=== PATIENT | female | born 1985 | race Caucasian/White ===

== ENCOUNTER 2016-08-13 02:35 | Inpatient (IN) | payer BC, OTHER ==
[2016-08-13] MEDS ORDERED: DINOPROSTONE 10 MG VAGINAL SUPPOSITORY VG ONE (03:50)
[2016-08-13 04:47] VITALS: BMI 30.9
[2016-08-13 05:28] LABS: BASOPHIL 0.5 % (0-2.0); EOSINOPHIL 3.1 % (0-4.5); MCH 25.4 pg (25.7-33.7); MCHC 32.8 g/dl (32.0-36.0); MEAN CELL VOLUME 77.2 fl (80-96); MEAN PLT VOLUME 9.9 fl (7.5-11.1); NEUTROPHILS 73.4 % (42.8-82.8); PLATELET COUNT 156 K/MM3 (134-434); RDW 15.7 % (11.6-15.6); WHITE BLOOD COUNT 11.3 K/mm3 (4.0-10.0)
[2016-08-13 05:42] LABS: INR 0.97 (0.82-1.09); PROTHROMBIN TIME (PATIENT) 10.7 SEC (9.98-11.88)
[2016-08-13 05:45] LABS: ACTIVATED PTT 26.6 SECONDS (26.9-34.4)
[2016-08-13 05:52] LABS: CALCIUM 8.4 mg/dL (8.5-10.1); CREATININE 0.8 mg/dL (0.55-1.02)
[2016-08-13] MEDS ORDERED: BUTORPHANOL TARTRATE 1 MG/ML VIAL IVPB ONE (07:36)
[2016-08-13] MEDS ORDERED: PROMETHAZINE HCL 25 MG/1 ML VIAL IVPUSH ONE (08:34)
[2016-08-13] MEDS: DEXTROSE 5%-LACTATED RINGERS 1,000 ML IV SCH (08:47)
--- NOTE | 2016-08-13 10:44 | HP ---
Past Medical History - Admission Chief Complaint: leaking fluid since 0130 am History of Present Illness: 31 y/o with SIUP at 38.2 weeks gestation (EDC ) who complains of LOF since about 1:30 this a.m. Patient was admitted overnight, was initially 1cm dilated and a cervidil was placed for induction of labor. The patient received Stadol/Phenergan at approximately 9am due to labor pains, and is now in active labor without augmentation. The patient's was complicated only by a history of preEclampsia for which she is on ASA 81mg daily. The patient did have mildly elevated BPs 07/24/16, had pre Eclampsia workup/labs which were normal. Pt denies any KOLB/RUQ pain or changes in vision, but does c/o some edema. Pt also with asthma - well controlled and a history of post depression. History Source: Patient, Medical Record - Past Medical History Cardiovascular: Yes: HTN (h/o pre Eclampsia in prior ) ...: 4 ...Para: 2 ...Term: 2 ...: 0 ...Spon : 1 ...Induced : 0 ...Multiple Gestation: 0 ...EDC by Lucinda: 08/24/16 Heme/Onc: Yes: Anemia Infectious Disease: No: HIV, MRSA, STD's Psych: Yes: Depression (h/o post depression). No: Bipolar Musculoskeletal: No: Chronic low back pain Rheumatology: No: Fibromyalgia Endocrine: No: [place]'s Disease, Hyperthyroidism, Hypothyroidism - Past Surgical History Hx Myomectomy: No Hx Transabdominal Cerclage: No - Smoking History Smoking history: Never smoked Have you smoked in the past 12 months: No - Alcohol/Substance Use Hx Alcohol Use: No History of Substance Use: reports: None - Social History Usual Living Arrangement: Yes: With Spouse ADL: Independent History of Recent Travel: No Home Medications - Allergies Allergies/Adverse Reactions: Allergies Allergy/AdvReac Type Severity Reaction Status Date / Time No Known Allergies Allergy Verified 08/13/16 06:53 - Home Medications Home Medications: Ambulatory Orders Vit Calc,Iron,Folic [ Vitamins] 1 each PO DAILY 08/13/16 Review of Systems - Review of Systems Constitutional: reports: No Symptoms Eyes: reports: No Symptoms HENT: reports: No Symptoms Neck: reports: No Symptoms Cardiovascular: reports: No Symptoms Respiratory: reports: No Symptoms Gastrointestinal: reports: No Symptoms Genitourinary: reports: No Symptoms Breasts: reports: No Symptoms Reported Musculoskeletal: reports: No Symptoms Integumentary: reports: No Symptoms Neurological: reports: No Symptoms Endocrine: reports: No Symptoms Hematology/Lymphatic: reports: No Symptoms Psychiatric: reports: No Symptoms Physical Exam - Maternity Vital Signs: Vital Signs Temperature 98.2 F 08/13/16 10:00 Pulse Rate 93 H 08/13/16 10:00 Respiratory Rate 20 08/13/16 10:00 Blood Pressure 133/76 08/13/16 10:00 O2 Sat by Pulse Oximetry (%) Constitutional: Yes: Well Nourished, No Distress, Calm Eyes: Yes: Conjunctiva Clear, EOM Intact HENT: Yes: Atraumatic, Normocephalic Neck: Yes: Supple, Trachea Midline Cardiovascular: Yes: Regular Rate and Rhythm Lungs: Clear to auscultation - Abdominal Exam/OB Fundal Height: 39 Number of Fetuses: Single Presentation: Vertex Contractions: Yes Regularity: Regular Intensity: Strong Monitor Mode: External Heart Rate (range): 120 Category: I Accelerations: Uniform Decelerations: Early - Vaginal Exam/OB Dilatation (cm): 6 Effacement (%): 100 Amniotic Membrane Status: Ruptured Nitrazine Test: Positive Amniotic Fluid: Yes: Clear Presentation: Vertex/Position Station: -2 - Physical Exam Psychiatric: Yes: Alert, Oriented - Labs Lab Results: CBC, BMP 08/13/16 04:50 08/13/16 04:50 Hemorrhage Risk Assessment - Risk Factors Medium Risk Factors: Yes: None High Risk Factors: Yes: None Risk Score: 1 Risk Level: Medium Risk Assessment/Plan 31 y/o with SIUP at 38.2 weeks, admitted with PROM, labor induced, now in active labor - FHTS cat 1 - PROM, s/p cervidil for induction, now in active labor. Continue expectant management at this time - GBS negative - anticipate
[2016-08-13] MEDS ORDERED: OXYTOCIN 15 UNITS/ LR 250 ML 250 ML IVPB SCH (10:45)
[2016-08-13] MEDS ORDERED: BUTORPHANOL TARTRATE 1 MG/ML VIAL IM PRN ×2 (11:04→11:27)
--- NOTE | 2016-08-13 11:11 | PN ---
Ante-Partal Exam - Subjective Vital Signs: Vital Signs Temperature 98.2 F 08/13/16 10:00 Pulse Rate 93 H 08/13/16 10:00 Respiratory Rate 20 08/13/16 10:00 Blood Pressure 133/76 08/13/16 10:00 O2 Sat by Pulse Oximetry (%) Bleeding: No Headache: No Visual changes: No Right upper quadrant pain: No Pain (scale 1-10): 7 - Contractions Contractions: Yes Regularity: Regular Intensity: Strong Monitor Mode: External - Exam during Labor Heart Rate: 120 Variability: Moderate Category: I Monitor Accelerations: Absent Monitor Decelerations: Early Exam: Vaginal Dilatation (cm): 8 Effacement (%): 100 Amniotic Membrane Status: Ruptured Nitrazine Test: Positive Presentation: Vertex Station: 0 - Intrapartum Hemorrhage Risk Medium Risk Factors: None High Risk Factors: None Risk Score: 0 Risk Level: Low Risk - Assessment/Plan Assessment/Plan: 31 y/o with SIUP at 38.2 weeks in labor - FHTS cat 1 - labor, expectant mangement - GBS negative
[2016-08-13] MEDS ORDERED: BISACODYL 10 MG SUPP.RECT RC PRN (11:28)
[2016-08-13] MEDS ORDERED: BENZOCAINE 28 GM HEMORRHOIDAL OINTMENT TP PRN (11:28)
[2016-08-13] MEDS ORDERED: METHYLERGONOVINE MALEATE 0.2 MG/1 ML AMP IM PRN (11:28)
[2016-08-13] MEDS ORDERED: WITCH HAZEL 50% (TUCKS) 40 PAD/JAR PAD TP PRN (11:28)
[2016-08-13] MEDS ORDERED: BENZOCAINE 20% 57 GM BOTTLE TP PRN (11:28)
[2016-08-13] MEDS ORDERED: oxyCODONE HCL 5 MG TABLET PO PRN (11:28)
[2016-08-13] MEDS: D5W-LR W/ 20 UNITS OXYTOCIN 1,000 ML IV SCH ×2 (11:58→16:45)
--- NOTE | 2016-08-13 12:07 | PN ---
Delivery - Delivery Vaginal Delivery: No Problems Type of Anesthesia: None (pt received Stadol/Phenergan IV at 9am) Episiotomy/Laceration: None EBL (cc): 300 Delivery, Single - Stages of Labor Date of Delivery: 08/13/16 Time of Delivery: 11:44 Date Placenta Delivered: 08/13/16 Time Placenta Delivered: 11:53 Placenta: Yes: Spontaneous - Condition of Infant Learning And Development Director/Nuisance Animal Damage Control Agent Present: No Gender: Male Position: OA - 1 Minute Total Score: 8 5 Minutes Total Score: 9 - [place] Feeding Plan Initial Plan: Exclusive throughout hospitalization Benefits of Exclusively reinforced: Yes Remarks - Remarks Remarks: Uncomplicated delivery of baby boy from DOA position tight nuchal cord noted, clamped and cut at perineum anterior shoulder (right) delivered with ease along with remainder of infant placenta delivered spontaneously and in tact no lacerations noted cervix visualized, no cervical laceration appreciated EBL 300 mom stable baby to well baby nursery sponge and needle count correct after delivery
[2016-08-13] MEDS: ACETAMINOPHEN 325 MG TABLET (FP) PO PRN ×2 (13:35→17:44)
[2016-08-13] MEDS: IBUPROFEN 600 MG TABLET (FP) PO PRN ×2 (13:37→17:50)
[2016-08-14] MEDS: IBUPROFEN 600 MG TABLET (FP) PO PRN (00:38)
[2016-08-14] MEDS: ACETAMINOPHEN 325 MG TABLET (FP) PO PRN (00:40)
[2016-08-14 07:17] LABS: BASOPHIL 0.5 % (0-2.0); EOSINOPHIL 2.4 % (0-4.5); MCH 25.5 pg (25.7-33.7); MCHC 32.9 g/dl (32.0-36.0); MEAN CELL VOLUME 77.5 fl (80-96); MEAN PLT VOLUME 9.8 fl (7.5-11.1); NEUTROPHILS 74.4 % (42.8-82.8); PLATELET COUNT 162 K/MM3 (134-434); RDW 15.9 % (11.6-15.6); WHITE BLOOD COUNT 15.7 K/mm3 (4.0-10.0)
[2016-08-14] MEDS: PRENATAL VITAMINS W/ FOLIC ACID TABLET (FP) PO SCH (10:34)
--- NOTE | 2016-08-14 11:32 | PN ---
Post Progress Note - Subjective Subjective: Pt seen/evaluated and doing well. Pain controlled, tolerating diet, voiding, ambulating. Having some symptoms of carpal tunnel/de quervains but otherwise offers no complaints. Type of Delivery: Vital Signs: Vital Signs Temperature 97.6 F 08/14/16 09:00 Pulse Rate 87 08/14/16 09:00 Respiratory Rate 20 08/14/16 09:00 Blood Pressure 122/63 08/14/16 09:00 O2 Sat by Pulse Oximetry (%) 99 08/13/16 12:55 Breast Exam: Yes: Soft Uterus: Yes: Fundus below umbilicus Abdomen/GI: Yes: Abdomen soft, Passing flatus, Tolerating PO. No: Abdominal Distention, Tender Lochia: Yes: Rubra Lochia, amount: Small Extremities: Yes: Calves non-tender, Edema (trace b/l upper and lower extremity edema) Perineum: Yes: Intact Activity: Ambulating - Labs Labs: CBC WBC 15.7 K/mm3 (4.0-10.0) H D 08/14/16 05:30 RBC 4.06 M/mm3 (3.60-5.2) 08/14/16 05:30 Hgb 10.3 GM/dL (10.7-15.3) L 08/14/16 05:30 Hct 31.5 % (32.4-45.2) L 08/14/16 05:30 MCV 77.5 fl (80-96) L 08/14/16 05:30 MCHC 32.9 g/dl (32.0-36.0) 08/14/16 05:30 RDW 15.9 % (11.6-15.6) H 08/14/16 05:30 Plt Count 162 K/MM3 (134-434) 08/14/16 05:30 MPV 9.8 fl (7.5-11.1) 08/14/16 05:30 Neutrophils % 74.4 % (42.8-82.8) 08/14/16 05:30 Lymphocytes % 16.7 % (8-40) 08/14/16 05:30 Monocytes % 6.0 % (3.8-10.2) 08/14/16 05:30 Eosinophils % 2.4 % (0-4.5) 08/14/16 05:30 Basophils % 0.5 % (0-2.0) 08/14/16 05:30 Assessment/Plan 31 y/o PPD#1 s/p normal - AFVSS - HGb 10.3 post delivery, mom stable - continue ambulation, regular diet, PO pain meds - routine care
[2016-08-14] MEDS: DEXTROSE 5%-LACTATED RINGERS 1,000 ML IV SCH (19:57)
[2016-08-14] MEDS: D5W-LR W/ 20 UNITS OXYTOCIN 1,000 ML IV SCH (19:57)
[2016-08-14] MEDS ORDERED: SENNOSIDES/DOCUSATE COMBO (SENNA PLUS) TABLET (UD) PO PRN (22:00)
[2016-08-15] MEDS: ACETAMINOPHEN 325 MG TABLET (FP) PO PRN (06:42)
[2016-08-15] MEDS: IBUPROFEN 600 MG TABLET (FP) PO PRN (06:43)
--- NOTE | 2016-08-15 08:04 | DS ---
Physical Exam-NEURODIAGNOSTIC TECH Vital Signs: Vital Signs Temperature 97.7 F 08/14/16 22:00 Pulse Rate 81 08/14/16 22:00 Respiratory Rate 18 08/14/16 22:00 Blood Pressure 130/68 08/14/16 22:00 O2 Sat by Pulse Oximetry (%) 99 08/13/16 12:55 Constitutional: Yes: Well Nourished HENT: Yes: Atraumatic Neck: Yes: Supple, Trachea Midline Cardiovascular: Yes: Regular Rate and Rhythm Respiratory: Yes: Regular, CTA Bilaterally Gastrointestinal: Yes: Normal Bowel Sounds Pelvis: Yes: WNL External Genitalia: Yes: Normal Vaginal Exam: Yes: Normal Cervix: Yes: Normal ....Post : Yes: Uterus firm, Moderate lochia rubra Breast(s): Yes: WNL Musculoskeletal: Yes: WNL Integumentary: Yes: WNL Neurological: Yes: Alert, Oriented ...Motor Strength: WNL Psychiatric: Yes: Alert, Oriented Labs: CBC, BMP 08/14/16 05:30 08/13/16 04:50 Delivery - Delivery Vaginal Delivery: No Problems Type of Anesthesia: None Episiotomy/Laceration: None EBL (cc): 300 Delivery, Single - Stages of Labor Date 1st Stage Initiatied: 08/13/16 Time 1st Stage Initiated: 04:00 Date 2nd Stage Initiated: 08/13/16 Time 2nd Stage Initiated: 11:37 Date of Delivery: 08/13/16 Time of Delivery: 11:44 Time Placenta Delivered: 11:53 Placenta: Yes: Spontaneous - Condition of Senior Account Director/Band Sawmill Operator Present: No Infant Gender: Male Weight: 7 lb 8 oz Position: OA Total Hours ROM (Hrs/Mins): 10 Hours and 23 Minutes - 1 Minute Total Score: 8 5 Minutes Total Score: 9 - [place] Feeding Plan Initial Plan: Exclusive throughout hospitalization Benefits of Exclusively reinforced: Yes Discharge Summary Reason For Visit: LABOR ADMIT Status post Procedures: Principal: Normal spontaneous vaginal delivery Hospital Course: Routine care Condition: Good - Instructions Diet, Activity, Other Instructions: Physical activity Resume your normal everyday activity as tolerated no heavy lifting or exercise until seen by your doctor. You may walk unlimited amounts and climb stairs. You may resume driving the car when you feel safe and comfortable behind the wheel - usually 1-2 weeks. No sexual activity as instructed for 6 weeks. Wound care If you have stitches, they will dissolve on their own. Do not attempt to remove them at home. Diet There are no dietary restrictions. Eat healthy, high-fiber foods. Drink 6 to 8 glasses of liquid each day. This will assist in keeping your bowels regular. Pain management You may take Tylenol or Ibuprofen for pain. Call MD for any of the following: Severe pain not relieved by medication Fever of 101 or higher Excessive bleeding or drainage on dressing Inability to urinate Referrals: Gaby Limon DO [Staff Physician] - Disposition: HOME - Home Medications Comprehensive Discharge Medication List: Ambulatory Orders Ibuprofen [Motrin -] 600 mg PO QID PRN #28 tablet 08/13/16 Vit Calc,Iron,Folic [ Vitamins] 1 each PO DAILY 08/13/16
[2016-08-15] MEDS: PRENATAL VITAMINS W/ FOLIC ACID TABLET (FP) PO SCH (10:24)
[2016-08-15 11:55] VITALS: BP 133/87; PULSE 86; TEMP 98.4
== END 2016-08-15 10:30 | disposition home or self-care (01) | DRG 775 ==
LOC: JDEL 02:35 → JLDR 03:50 → J3W 13:25
PROVIDERS: ADMIT Obstetrics & Gynecology; ATTEND Obstetrics & Gynecology
PROC: 10E0XZZ Delivery of Products of Conception, External Approach (ICD-10-PCS; principal; 2016-08-13)
DX: O80 Encounter for full-term uncomplicated delivery (principal); Z3A.38 38 weeks gestation of pregnancy; Z37.0 Single live birth
CPT/HCPCS: 36415; 59025; 59409; 80048; 85025; 85610; 85730; 86593; 86850; 86900; 86901